=== PATIENT | male | born 1955 | race Caucasian/White ===

== ENCOUNTER → 2021-04-02 | Outpatient (CLI) | payer MEDICARE ==
[~2021-04-02] MED LIST: REGADENOSON 0.4 MG/5 ML SYR IV ONE
== END ==
LOC: NM 09:32
PROVIDERS: ATTEND Internal Medicine
DX: R07.9 Chest pain, unspecified (principal)
CPT/HCPCS: 78452; 93017; 93306; A9502; J2785

== ENCOUNTER → 2023-02-19 | Outpatient (CLI) | payer MEDICARE | LOC: NM 08:45 | PROVIDERS: ATTEND Internal Medicine | DX: I20.8 Other forms of angina pectoris (principal) | CPT/HCPCS: 78452; 93017; A9502; J2785 ==

== ENCOUNTER → 2024-01-05 | Outpatient (RCR) | payer MEDICARE ==
[~2024-01-05] MED LIST changes: +AMLODIPINE BESY10 MG PO; +ATENOLOL50 MG PO; +ELIQUIS5 MG PO; +HYDROCHLOROTHIA25 MG; +LOSARTAN POTAS100 MG PO; +ONE DAILY FOR1 EAC2; -REGADENOSON 0.4 MG/5 ML SYR IV ONE; +SIMVASTATIN40 MG PO
== END ==
LOC: PT 12-31 14:59
PROVIDERS: ATTEND Specialist
DX: Z47.1 Aftercare following joint replacement surgery (principal); Z96.652 Presence of left artificial knee joint; M62.81 Muscle weakness (generalized); R26.89 Other abnormalities of gait and mobility; M25.562 Pain in left knee; M25.662 Stiffness of left knee, not elsewhere classified

== ENCOUNTER 2024-02-12 13:50 | Outpatient (RCR) | payer MEDICARE | END 2024-03-06 | LOC: PT 13:50 | PROVIDERS: ATTEND Specialist | DX: M17.0 Bilateral primary osteoarthritis of knee (principal); M62.81 Muscle weakness (generalized); R26.89 Other abnormalities of gait and mobility ==